=== PATIENT | female | born 2000 ===

== ENCOUNTER 2021-07-14 15:24 | Emergency (ER) | payer MEDICAID, OTHER ==
[~2021-07-14] VITALS: Ht 170.2 cm; Wt 81.6 kg
[2021-07-14 19:06] VITALS: BP 189/69
== END 2021-07-14 19:39 | disposition home or self-care (01) ==
LOC: ER 15:24
DX: J18.9 Pneumonia, unspecified organism (principal); M79.10 Myalgia, unspecified site
CPT/HCPCS: 36415; 71045; 87426

== ENCOUNTER 2021-09-29 18:41 | Emergency (ER) | payer MEDICAID ==
[~2021-09-29] VITALS: Ht 172.7 cm; Wt 63.5 kg
[2021-09-29 18:46] VITALS: BP 129/86
== END 2021-09-29 21:45 | disposition left against medical advice (07) ==
LOC: ER 18:42
DX: N89.8 Other specified noninflammatory disorders of vagina (principal); Z53.21 Procedure and treatment not carried out due to patient leaving prior to being seen by health care provider